=== PATIENT | female | born 1965 | race Caucasian/White ===

== ENCOUNTER 2018-10-25 04:23 | Observation (INO) | payer BC ==
[~2018-10-25] VITALS: Ht 165.1 cm; Wt 90.3 kg
[~2018-10-25 04:23] MED LIST: ALBMDI INH; BUPR-120 PO; BUPR75TA8 PO; DULO60CA41 PO; LISI40TA4 PO; METO-544 PO; METO100T14 PO; PREG200C PO; PREG75CA PO
[2018-10-25 04:25] VITALS: BP_SYST 134
[2018-10-25] MEDS ORDERED: NITROGLYCERIN 1 INCH (GM) OINT. TP ONE ×2 (05:27→23:30)
[2018-10-25] MEDS ORDERED: MORPHINE 4 MG/ML INJ. SYRINGE IVP ONE ×2 (05:27→23:30)
[2018-10-25] MEDS ORDERED: METH10TA80 PO (06:23)
[2018-10-25] MEDS ORDERED: ENOXAPARIN SODIUM 80 MG/0.8 ML SYRINGE SUBCUT ONE (06:30)
[2018-10-25] MEDS ORDERED: ASPIRIN 325 MG TABLET PO ONE (06:30)
[2018-10-25 06:51] LABS: CALCIUM 8.7 mg/dL (8.4-11.0); CREATININE 0.65 mg/dL (0.55-1.30); POTASSIUM 3.6 mmol/L (3.5-5.1)
[2018-10-25 06:52] LABS: RED BLOOD CELL COUNT(AUTO) 4.94 MIL/uL (4.2-6.2)
[2018-10-25 06:53] LABS: MEAN CORPUSCULAR HEMOGLOBIN 28 pg (27-31); MEAN CORPUSCULAR HGB CONC 33 % (32-36); MEAN CORPUSCULAR VOLUME 85 fL (79.0-98.0); PLATELET COUNT (AUTO) 182 K/uL (130-430); RED CELL DISTRIBUTION WIDTH 14.9 % (9.0-15.0)
[2018-10-25 06:54] LABS: BASOPHILS % (AUTO) 0.6 % (0.0-2.0); EOSINOPHILS # (AUTO) 0.2 K/uL (0.0-0.4); EOSINOPHILS % (AUTO) 3.9 % (0.0-4.0); LYMPHOCYTES # (AUTO) 1.2 K/uL (1.0-5.5); LYMPHOCYTES % (AUTO) 24.6 % (20.5-51.5); MONOCYTES # (AUTO) 0.3 K/uL (0.0-1.0); MONOCYTES % (AUTO) 6.9 % (1.7-9.3); NEUTROPHILS # (AUTO) 3.2 K/uL (1.8-7.7)
[2018-10-25 06:57] LABS: ALBUMIN 3.8 g/dL (3.4-4.8); INR 0.9 (0.8-1.2); PROTHROMBIN TIME 9.4 SECS (9.5-12.5); TOTAL BILIRUBIN 0.2 mg/dL (0.0-1.0)
[2018-10-25 08:34] VITALS: BP_SYST 132
[2018-10-25] MEDS ORDERED: METHIMAZOLE 5 MG TABLET PO ONE (11:00)
[2018-10-25] MEDS ORDERED: ACETAMINOPHEN 325 MG TABLET PO PRN (11:00)
[2018-10-25 11:32] VITALS: BP_SYST 138
[2018-10-25 12:05] LABS: THYROID STIMULATING HORMONE 3.2 uIu/mL (0.34-4.82)
[2018-10-25 16:05] VITALS: BP_SYST 137
[2018-10-25] MEDS ORDERED: EXCEDRIN EXTRA STRENGTH PO PRN (16:45)
[2018-10-25 20:58] VITALS: BP_SYST 125
[2018-10-25] MEDS: PANTOPRAZOLE SODIUM 40 MG/VIAL (PROTONIX) IVP SCH (21:01)
[2018-10-26 00:09] VITALS: BP_SYST 124
[2018-10-26 08:01] VITALS: BP_SYST 135
[2018-10-26] MEDS: PANTOPRAZOLE SODIUM 40 MG/VIAL (PROTONIX) IVP SCH (08:18)
[2018-10-26] MEDS ORDERED: METHIMAZOLE 5 MG TABLET PO SCH (09:00)
[2018-10-26] MEDS ORDERED: PRO40 PO (09:03)
[2018-10-26 09:22] VITALS: BP_SYST 135
== END 2018-10-26 10:15 | disposition home or self-care (01) ==
LOC: SED 04:23 → STU 07:41
PROVIDERS: ADMIT Internal Medicine Hospice and Palliative Medicine; ATTEND Internal Medicine Hospice and Palliative Medicine
DX: R07.89 Other chest pain (principal); E05.00 Thyrotoxicosis with diffuse goiter without thyrotoxic crisis or storm; M06.9 Rheumatoid arthritis, unspecified; M79.7 Fibromyalgia; K21.9 Gastro-esophageal reflux disease without esophagitis; E66.9 Obesity, unspecified; Z98.890 Other specified postprocedural states; Z80.0 Family history of malignant neoplasm of digestive organs; Z90.49 Acquired absence of other specified parts of digestive tract; R10.13 Epigastric pain
CPT/HCPCS: 36415 ×2; 71045; 76700; 80053; 80061; 83690; 83880; 84443; 84484; 85025; 85379; 85610; 85730; 93005; 93306; 96372; 96374; 96375; 96376; 99291; C9113 ×2; G0378 ×2; J1650; J2270; 99284